=== PATIENT | female | born 1990 | race African-American/Black ===

== ENCOUNTER 2017-09-01 15:20 | Emergency (ER) | payer OTHER ==
[~2017-09-01] VITALS: Ht 160 cm; Wt 77.1 kg
[2017-09-01 15:43] VITALS: BP 133/81; TEMP 97.9
== END 2017-09-01 16:25 | disposition home or self-care (01) ==
LOC: ED 15:20
DX: F41.9 Anxiety disorder, unspecified (principal)
CPT/HCPCS: 99282

== ENCOUNTER 2018-02-22 06:48 | Emergency (ER) | payer OTHER ==
[~2018-02-22] VITALS: Ht 160 cm; Wt 80.3 kg
[2018-02-22 07:02] VITALS: TEMP 97.9
[2018-02-22 10:57] VITALS: BP 128/74
== END 2018-02-22 10:59 | disposition home or self-care (01) ==
LOC: ED 06:48
DX: O20.0 Threatened abortion (principal)
CPT/HCPCS: 36415; 81025; 84702; 99284

== ENCOUNTER 2020-05-09 08:59 | Emergency (ER) | payer OTHER ==
[~2020-05-09] VITALS: Ht 160 cm; Wt 86.2 kg
[2020-05-09 10:02] LABS: PLATELET COUNT 372 K/uL (152-353)
[2020-05-09 10:08] LABS: POTASSIUM 3.5 mmol/L (3.6-5.2)
[2020-05-09 10:21] VITALS: BP 118/72; TEMP 97.7
== END 2020-05-09 10:26 | disposition home or self-care (01) ==
LOC: ED 08:59
PROVIDERS: Emergency Medicine
DX: O26.851 Spotting complicating pregnancy, first trimester (principal)
CPT/HCPCS: 80053; 81025; 85007; 85027; 99283